=== PATIENT | female | born 1990 | race Caucasian/White ===

== ENCOUNTER 2018-12-21 10:17 | Emergency (ER) | payer OTHER ==
--- NOTE | 2018-12-21 10:38 | EDPHY ---
H & P Stated Complaint: Pt. with rt inguinal to low abd pressure since yesterday,4wks preg. Time Seen by Provider: 12/21/18 10:22 HPI/ROS: CHIEF COMPLAINT: Right lower abdominal pain, early HISTORY OF PRESENT ILLNESS: 28-year-old female presents emergency department reporting the development of pressure in the right lower quadrant, right inguinal and adnexal area which is been present since yesterday. Patient reports her last menstrual cycle was November 19. She took a test on December 16 which was positive. She had positive urine tests x3 since that time. Patient denies any morning sickness, or nausea. She has had no spotting. . Reports no contraceptive use. Periods have always been very regular. Denies any history of sexually transmitted diseases. Denies any urinary complaints. No fever, chills, chest pain, shortness of breath, palpitations, vomiting, diarrhea, urinary complaints, headache, lightheadedness. REVIEW OF SYSTEMS: A comprehensive 10 system review of systems was reviewed and is otherwise negative aside from elements mentioned in the history of present illness and medical decision making. PAST MEDICAL HISTORY: Possible hypothyroid, started on levothyroxine 25 mcg 1 week ago. SOCIAL HISTORY: Here with her . VITAL SIGNS Reviewed by me. GENERAL: Well-developed, well-nourished, resting comfortably in no respiratory distress. HEENT: Atraumatic. Eyes: No icterus, no injection. Mouth: moist mucous membranes. No erythema or lesions. Neck: supple with no adenopathy. LUNGS: Clear to auscultation bilaterally, no wheezes, rhonchi or rales. CARDIAC: Tachycardic, regular, no rubs, murmurs or gallops. ABDOMEN: Soft, no palpable tenderness. Patient indicates the area of pressure is just superior to the inguinal canal on the right. Nondistended. BACK: No CVA tenderness. EXTREMITIES: No trauma. No edema. Range of motion is normal throughout. NEURO: Alert and oriented, grossly nonfocal. SKIN: Warm and dry, no rash. PSYCHIATRIC: Normal mentation, no agitation. - Personal History LMP (Females 10-55): - Medical/Surgical History Other PMH: Med hx-none. Surg-none Constitutional: Initial Vital Signs Temperature (C) 37.1 C 12/21/18 10:24 Heart Rate 105 H 12/21/18 10:24 Respiratory Rate 16 12/21/18 10:24 Blood Pressure 150/106 H 12/21/18 10:24 O2 Sat (%) 98 12/21/18 10:24 O2 Delivery Mode Room Air Allergies/Adverse Reactions: Penicillins Allergy (Severe, Verified 12/21/18 10:23) Hives and migraine Home Medications: Medication Instructions Recorded Levothyroxine 12/21/18 12/21/18 Medical Decision Making - Diagnostics Imaging Results: Impression: 1. Probable early intrauterine with gestational sac corresponding to 4 weeks 6 days. However, no pole or yolk sac noted. Recommend serum quantitative beta hCG follow-up. 2. No ovarian torsion, significant free fluid, or adnexal masses. Findings and recommendations discussed with emergency department physician, Sophia Rodriguez MD at 1206 hours on December 21, 2018. Final report concurs with initial preliminary interpretation. Dictated By: Socrates Strong ED Course/Re-evaluation: IV established. Urine test here was positive. Ultrasound ordered. Ultrasound demonstrates a 4 week 6 day gestational sac but no pole or yolk sac is visible. No evidence of ectopic, normal ovaries. Discussed these results with the patient and her at length. They understand the importance of close follow-up to include repeat quantitative HCG as well as probable repeat ultrasound. The understand that presence of a gestational sac does not clearly indicate an intrauterine however, given her early dates, and her quant of 1833, it is possible that this does represent a very early intrauterine and repeat studies will be needed. Patient will follow up with OBGYN. She has not yet established care and so her case was discussed with Dr. Currie and patient was given referral to Dr. Currie. Differential Diagnosis: The differential diagnosis for the patient's abdominal pain was considered including but not limited to related complications, hernia, muscle strain, ovarian cyst, appendicitis. - Data Points Medications Given: Discontinued Medications Sodium Chloride (Ns) 1,000 mls @ 0 mls/hr IV ONCE ONE; Wide Open PRN Reason: Protocol Stop: 12/21/18 11:03 Last Admin: 12/21/18 11:19 Dose: 1,000 mls Point of Care Test Results: CBC CBC Collection Date 12/21/18 CBC Collection Time 10:45 WBC 7.55 RBC 5.08 HGB 15.0 HCT 44.2 PLT 293 Neut # 6.00 Neut 79.5 LYMPH # 1.14 LYMPH 15.1 MCV 87.0 Chemistry 12/21/18 10:53 POC Sodium 138 mEq/L mEq/L (135-145) POC Potassium 3.9 mEq/L mEq/L (3.3-5.0) POC Chloride 105.0 mEq/L mEq/L (97-110) POC Total CO2 22 mEq/L mEq/L (22-31) POC BUN 9 mg/dL mg/dL (7-23) POC Creatinine 0.8 mg/dL mg/dL (0.6-1.0) POC Glucose 106 mg/dL H mg/dL (70-100) POC Calcium 9.5 mg/dL mg/dL (8.5-10.4) Urine Collection Date 12/21/18 Collection Time 10:50 HCG Results Positive Urine Dip Collection Date 12/21/18 Collection Time 10:50 Specific [place] (1.002-1.030) 1.010 PH (5.0-7.5) 6.0 Leukocytes (Negative) Negative Nitrites (Negative) Negative Protein (Negative) Negative Glucose (Negative) Negative Ketones (Negative) 2+ Urobilnogen (0.2-1.0 EU) 0.2 Bilirubin (Negative) Negative Blood (Negative) Negative Departure - Departure Disposition: Home, Routine, Self-Care Clinical Impression: Early stage of Abdominal pain Qualifiers: Abdominal location: right lower quadrant Qualified Code(s): R10.31 - Right lower quadrant pain Condition: Good Instructions: (ED) Additional Instructions: The ultrasound today demonstrates a 4 weeks 6 days gestational sac. Your ovaries are normal. We see no evidence of a ectopic or tubal . We do not yet see a pole. Your quantitative HCG is 1833. Your quantitative HCG should be repeated in 48- 72 hours to ensure that it is rising appropriately. Repeat ultrasound will be needed to ensure the development of a pole in the gestational sac. Please follow up with Dr. Oneill or with OBGYN. You been given referral to OBGYN on-call for [facility] today. Use Tylenol as needed for any discomfort. Please stay well-hydrated. Return to the emergency department or seek care urgently if you develop any vaginal bleeding, passage of tissue or clots, or worsening pain. FYI your blood type is AB-positive. Referrals: Renetta Oneill MD [Primary Care Provider] - As per Instructions Vandana Currie DO [Doctor of Osteopathy] - As per Instructions (Follow-up with Dr. Currie for repeat quantitative HCG in 48-72 hours.)
[2018-12-21] MEDS ORDERED: NS 1,000 ML IV ONE (11:02)
[2018-12-21 12:57] VITALS: BP 138/86
== END 2018-12-21 12:55 | disposition home or self-care (01) ==
LOC: CED 10:17
DX: O26.891 Other specified pregnancy related conditions, first trimester (principal); O99.283 Endocrine, nutritional and metabolic diseases complicating pregnancy, third trimester; Z3A.01 Less than 8 weeks gestation of pregnancy
CPT/HCPCS: 80048-ER; 81025-ER; 85025-QW-ER; 96360-ER; 99285-ER